=== PATIENT | female | born 1995 ===

== ENCOUNTER 2020-06-26 15:49 | Outpatient (REF) | payer BC, SELFPAY | END 2020-06-26 15:50 | disposition home or self-care (01) | LOC: HO.LAB 15:49 | PROVIDERS: Visit Provider Hospitalist | DX: Z20.822 Contact with and (suspected) exposure to COVID-19 (principal) | CPT/HCPCS: 36415; U0003 ==

== ENCOUNTER 2020-08-04 16:22 | Outpatient (REF) | payer BC, SELFPAY | END 2020-08-04 16:23 | disposition home or self-care (01) | LOC: HO.LAB 16:22 | PROVIDERS: Visit Provider Hospitalist | DX: R50.9 Fever, unspecified (principal); R51.9 Headache, unspecified; Z20.822 Contact with and (suspected) exposure to COVID-19 | CPT/HCPCS: 36415; U0003; U0005 ==

== ENCOUNTER 2021-06-09 11:16 | Outpatient (REF) | payer BC, SELFPAY ==
[2021-06-09 12:09] LABS: Influenza A PCR NEGATIVE (Negative); Influenza B PCR NEGATIVE (Negative); Resp Syncy Virus RNA Qual PCR NEGATIVE (Negative); SARS COV2 PCR INHOUSE NEGATIVE (Negative)
== END 2021-06-09 11:17 | disposition home or self-care (01) ==
LOC: HO.LNP 11:16
PROVIDERS: Visit Provider Hospitalist
DX: Z20.822 Contact with and (suspected) exposure to COVID-19 (principal)
CPT/HCPCS: 0241U